=== PATIENT | female | born 1980 | race Two or more races ===

== ENCOUNTER 2022-07-28 10:42 | Outpatient (CLI) | payer OTHER | END 2022-07-28 12:01 | disposition home or self-care (01) | LOC: NST 10:42 | PROVIDERS: ATTEND Obstetrics & Gynecology Gynecology | DX: Z34.83 Encounter for supervision of other normal pregnancy, third trimester (principal) ==

== ENCOUNTER 2022-07-28 13:24 | Inpatient (IN) | payer OTHER ==
[~2022-07-28] VITALS: Ht 154.9 cm; Wt 73.9 kg
[2022-08-02] MEDS ORDERED: IRON325 MG PO (11:58)
[2022-08-02] MEDS ORDERED: PRIMACARE SOFT1 EACH PO (11:59)
== END 2022-08-05 12:22 | disposition home or self-care (01) | DRG 788 ==
LOC: O/R 08-02 11:09 → OB/GYN 08-02 13:22
PROVIDERS: ADMIT Obstetrics & Gynecology Gynecology; ATTEND Obstetrics & Gynecology Gynecology
PROC: 4A1HXCZ Monitoring of Products of Conception, Cardiac Rate, External Approach (ICD-10-PCS; 2022-08-02)
PROC: 10D00Z1 Extraction of Products of Conception, Low, Open Approach (ICD-10-PCS; principal; 2022-08-02 14:55)
DX: O32.1XX0 Maternal care for breech presentation, not applicable or unspecified (principal); Z3A.39 39 weeks gestation of pregnancy; Z37.0 Single live birth; Z20.822 Contact with and (suspected) exposure to COVID-19